=== PATIENT | female | born 1970 | race Caucasian/White ===

== ENCOUNTER 2021-04-15 10:41 | Observation (INO) | payer OTHER ==
[~2021-04-15] VITALS: Ht 160 cm; Wt 53.0 kg
[2021-04-15] MEDS ORDERED: ONDANSETRON HCL 4 MG/2 ML VIAL IV ONE (11:00)
[2021-04-15] MEDS ORDERED: SODIUM CHLORIDE 0.9% 1,000 ML IVB ONE (11:00)
[2021-04-15 11:34] LABS: Basophils # (auto) 0 10 ^3/uL (0-0.2); Basophils % (auto) 0.1 % (0.0-2.0); Eosinophils # (auto) 0 10 ^3/uL (0-0.8); Hematocrit 42.5 % (36.0-46.0); Hemoglobin 14.4 g/dL (12.2-16.2); Lymphocytes # (auto) 0.3 10 ^3/uL (0.4-5.4); Lymphocytes % (auto) 3.9 % (10.0-50.0); Mean Corpuscular Hemoglobin 31.4 pg (28.0-32.0); Mean Corpuscular Hgb Conc. 33.9 g/dL (32.0-36.0); Mean Corpuscular Volume 92.6 fL (80.0-100.0); Monocytes # (auto) 0.2 10 ^3/uL (0-1.3); Neutrophils # (auto) 7.6 10 ^3/uL (1.6-8.6); Red Blood Cells 4.59 10^6/uL (4.0-5.20); Red Cell Distribution Width 12.1 % (11.8-14.3); White Blood Cell 8.1 10^3/uL (4.4-10.8)
[2021-04-15] MEDS: MORPHINE SULFATE 4 MG/ML SYR/VIAL IV ONE ×2 (12:18→13:32)
[2021-04-15 12:29] LABS: Potassium 4.8 mmol/L (3.5-5.1)
[2021-04-15 12:39] LABS: Albumin 3.9 g/dL (3.4-5.0); BUN/Creatinine Ratio 18.6; Bilirubin, Total 0.4 mg/dL (0.2-1.0); Calcium 9.5 mg/dL (8.5-10.1)
[2021-04-15] MEDS ORDERED: MORPHINE SULF INJ 2 MG/ML SYRINGE 1ML IV ONE (13:30)
[2021-04-15] MEDS ORDERED: NITROGLYCERIN 0.4 MG SL TAB SL PRN (14:15)
[2021-04-15] MEDS ORDERED: ACETAMINOPHEN 325 MG TAB PO PRN (14:15)
[2021-04-15] MEDS ORDERED: MORPHINE SULF INJ 2 MG/ML SYRINGE 1ML IV PRN ×2 (14:15)
[2021-04-15] MEDS ORDERED: HYDROcodone-ACET 5/325MG TAB PO PRN (14:15)
[2021-04-15] MEDS ORDERED: SOD CHL 0.45% 1,000 ML IV ONE (14:15)
[2021-04-15] MEDS ORDERED: ONDANSETRON HCL 4 MG/2 ML VIAL IV PRN (14:15)
[2021-04-15] MEDS: PIPERACILLIN-TAZOB 3.375GM 100 ML IV ONE ×2 (15:12→15:55)
[2021-04-15] MEDS ORDERED: VITA400T4 PO (16:27)
[2021-04-15] MEDS ORDERED: COEN400C8 OR (16:27)
[2021-04-15] MEDS ORDERED: ASCO500C49 PO (16:27)
[2021-04-15] MEDS ORDERED: GLUC1CAP11 PO (16:27)
[2021-04-15] MEDS ORDERED: B-COCAP34 PO (16:27)
[2021-04-15] MEDS ORDERED: ZINC50TA7 PO (16:27)
[2021-04-15] MEDS ORDERED: CHOL500021 PO (16:27)
[2021-04-15] MEDS: cefTRIAXone 1GM/50ML D5W 50 ML IV SCH (17:00)
[2021-04-15 18:15] VITALS: BP 124/89
[2021-04-15 19:47] LABS: Urine Bacteria NONE SEEN /hpf (None Seen); Urine Blood 1+ /uL (Negative); Urine Specific Gravity 1.011 (1.001-1.035); Urine WBC 2 /hpf (0 - 5)
[2021-04-15 22:00] VITALS: BP 104/65
[2021-04-15] MEDS: metroNIDAZOLE 500MG/100ML 100 ML IV SCH (22:19)
[2021-04-16 05:00] VITALS: BP 90/59
[2021-04-16] MEDS: metroNIDAZOLE 500MG/100ML 100 ML IV SCH ×2 (05:42→14:26)
[2021-04-16] MEDS: cefTRIAXone 1GM/50ML D5W 50 ML IV SCH (08:49)
[2021-04-16] MEDS ORDERED: PANTOPRAZOLE 40 MG TAB PO SCH (10:00)
[2021-04-16 16:28] VITALS: BP 102/59
[2021-04-16 17:00] VITALS: BP 96/63
== END 2021-04-16 18:20 | disposition home or self-care (01) ==
LOC: ER 10:41 → TELE-EAST 14:14
PROVIDERS: ADMIT Internal Medicine; ATTEND Internal Medicine
DX: R10.31 Right lower quadrant pain (principal); Z20.822 Contact with and (suspected) exposure to COVID-19; I49.8 Other specified cardiac arrhythmias; K63.89 Other specified diseases of intestine; D84.9 Immunodeficiency, unspecified; Z90.49 Acquired absence of other specified parts of digestive tract; Z88.0 Allergy status to penicillin; Z79.899 Other long term (current) drug therapy
CPT/HCPCS: 36415; 74176; 80053; 81001; 83605; 83690; 84443; 85025; 87040; 87426; 93005; 93306; 96361; 96365; 96366; 96367; 96375; 99285; G0378; J0696; J2270; J2405; J2543; J3490; J7030